=== PATIENT | male | born 1965 | race Hispanic/Latino ===

== ENCOUNTER 2022-01-22 17:16 | Emergency (ER) | payer OTHER ==
[~2022-01-22] VITALS: Ht 177.8 cm; Wt 117.9 kg
[2022-01-22] MEDS ORDERED: KETOROLAC 15MG/ML VIAL (15MG/ML) IV ONE (18:00)
[2022-01-22] MEDS ORDERED: ONDANSETRON 4MG INJ IVP ONE (18:00)
[2022-01-22] MEDS ORDERED: MORPHINE 4 MG SYG IVP ONE (18:00)
[2022-01-22] MEDS ORDERED: 0.9%NACL 1000ML 1,000 ML IV ONE (18:00)
[2022-01-22 18:08] LABS: BASOPHILS % (AUTO) 0.5 % (0.0-5.0); EOSINOPHILS % (AUTO) 0.1 % (0.0-8.0); HEMATOCRIT 49.2 % (42-54); LYMPHOCYTES % (AUTO) 17.6 % (21.0-51.0); MEAN CORPUSCULAR HEMOGLOBIN 32.7 pg (27.0-33.0); MEAN CORPUSCULAR HGB CONC 33.9 g/dL (32.0-36.0); MEAN CORPUSCULAR VOLUME 96.3 fL (79-99); MONOCYTES % (AUTO) 6.1 % (3.0-13.0); PLATELET COUNT (AUTO) 261 K/uL (130-400); RED BLOOD CELL COUNT(AUTO) 5.11 MIL/uL (4.50-6.20); RED CELL DISTRIBUTION WIDTH 12.5 % (11.0-15.5); WHITE BLOOD COUNT (AUTO) 10.2 K/uL (4.8-10.8)
[2022-01-22 18:31] LABS: APPEARANCE,URINE CLEAR (CLEAR); BILIRUBIN,URINE NEGATIVE (NEGATIVE); COLOR,URINE YELLOW (YELLOW); GLUCOSE, URINE (UA) NEGATIVE (NEGATIVE); KETONES,URINE 15 mg/dL (NEGATIVE); LEUKOCYTE ESTERASE ,URINE NEGATIVE (NEGATIVE); NITRATE,URINE NEGATIVE (NEGATIVE); OCCULT BLOOD,URINE LARGE (NEGATIVE); PROTEIN,URINE TRACE mg/dL (NEGATIVE); UROBILINOGEN,URINE 0.2 mg/dL (0.2-1.0)
[2022-01-22 18:39] LABS: BACTERIA,URINE Few /HPF (None Seen); MUCUS,URINE Rare LPF (None Seen); RBC,URINE 26-50 /HPF (0-1); SQUAMOUS EPITHELIAL CELL,UR Rare /HPF (0-2); WBC,URINE 0-1 /HPF (0-1)
[2022-01-22 18:44] LABS: ALBUMIN 3.9 g/dL (3.5-5.0); BILIRUBIN,TOTAL 0.9 mg/dL (0.2-1.0); CREATININE 1.6 mg/dL (0.5-1.5); POTASSIUM 3.8 mmol/L (3.5-5.1); TOTAL PROTEIN, SERUM 7.6 g/dL (6.0-8.3)
[2022-01-22] MEDS ORDERED: ACET-2079 PO (20:43)
[2022-01-22] MEDS ORDERED: ONDA4TAB10 PO (20:43)
[2022-01-22] MEDS ORDERED: NAPR500T6 PO (20:43)
[2022-01-22 20:46] VITALS: BP 135/90
== END 2022-01-22 20:59 | disposition home or self-care (01) ==
LOC: EDH 17:16
DX: N20.1 Calculus of ureter (principal); Z79.1 Long term (current) use of non-steroidal anti-inflammatories (NSAID); Z79.899 Other long term (current) drug therapy
CPT/HCPCS: 36415; 74176; 80053; 81001; 82150; 83690; 84484; 85025; 93005; 96361; 96374; 96375; 99285; J1885; J2270; J2405; J7030

== ENCOUNTER 2022-04-10 00:06 | Emergency (ER) | payer OTHER ==
[~2022-04-10] VITALS: Ht 177.8 cm; Wt 121.1 kg
[~2022-04-10 00:06] MED LIST: ACET-2079 PO; NAPR500T6 PO; ONDA4TAB10 PO
[2022-04-10 00:44] LABS: APPEARANCE,URINE CLEAR (CLEAR); BILIRUBIN,URINE NEGATIVE (NEGATIVE); COLOR,URINE YELLOW (YELLOW); GLUCOSE, URINE (UA) NEGATIVE (NEGATIVE); KETONES,URINE NEGATIVE (NEGATIVE); LEUKOCYTE ESTERASE ,URINE NEGATIVE (NEGATIVE); NITRATE,URINE NEGATIVE (NEGATIVE); OCCULT BLOOD,URINE SMALL (NEGATIVE); PH,URINE 5.5 (5.0-8.0); PROTEIN,URINE NEGATIVE (NEGATIVE); UROBILINOGEN,URINE 0.2 mg/dL (0.2-1.0)
[2022-04-10 00:50] LABS: CREATININE 2.4 mg/dL (0.5-1.5); POTASSIUM 4.1 mmol/L (3.5-5.1)
[2022-04-10 00:55] LABS: ALBUMIN 3.3 g/dL (3.5-5.0); BILIRUBIN,TOTAL 0.7 mg/dL (0.2-1.0); TOTAL PROTEIN, SERUM 6.8 g/dL (6.0-8.3)
[2022-04-10 00:57] LABS: BACTERIA,URINE Rare /HPF (None Seen); BASOPHILS % (AUTO) 0.6 % (0.0-5.0); EOSINOPHILS % (AUTO) 2.7 % (0.0-8.0); HEMATOCRIT 43.4 % (42-54); LYMPHOCYTES % (AUTO) 17.4 % (21.0-51.0); MEAN CORPUSCULAR HEMOGLOBIN 32.7 pg (27.0-33.0); MEAN CORPUSCULAR HGB CONC 33.4 g/dL (32.0-36.0); MEAN CORPUSCULAR VOLUME 97.7 fL (79-99); MONOCYTES % (AUTO) 10.5 % (3.0-13.0); MUCUS,URINE Rare LPF (None Seen); NEUTROPHILS % (AUTO) 67.9 % (40.0-77.0); PLATELET COUNT (AUTO) 227 K/uL (130-400); RBC,URINE 0-1 /HPF (0-1); RED BLOOD CELL COUNT(AUTO) 4.44 MIL/uL (4.50-6.20); RED CELL DISTRIBUTION WIDTH 12.6 % (11.0-15.5); SQUAMOUS EPITHELIAL CELL,UR 0-2 /HPF (0-2); WBC,URINE 0-1 /HPF (0-1)
[2022-04-10 00:58] LABS: URIC ACID CRYSTALS,URINE Many /LPF (None Seen)
[2022-04-10] MEDS ORDERED: 0.9%NACL 1000ML 1,000 ML IV ONE (02:00)
[2022-04-10] MEDS ORDERED: MORPHINE 4 MG SYG IVP ONE (03:00)
[2022-04-10] MEDS ORDERED: ONDANSETRON 4MG INJ IVP ONE (03:00)
[2022-04-10] MEDS ORDERED: IBUP-1493 PO (04:04)
[2022-04-10 04:16] VITALS: BP 134/77
== END 2022-04-10 04:17 | disposition home or self-care (01) ==
LOC: EDH 00:06
DX: N23 Unspecified renal colic (principal); Z79.1 Long term (current) use of non-steroidal anti-inflammatories (NSAID); Z79.899 Other long term (current) drug therapy
CPT/HCPCS: 36415; 74176; 80053; 81001; 85025; 96361; 96374; 96375; 99284; J2270; J2405; J7030

== ENCOUNTER 2022-12-21 18:50 | Emergency (ER) | payer OTHER ==
[~2022-12-21] VITALS: Ht 177.8 cm; Wt 117.9 kg
[~2022-12-21 18:50] MED LIST changes: +IBUP-1493 PO
[2022-12-21 19:17] LABS: APPEARANCE,URINE TURBID (CLEAR); BILIRUBIN,URINE MODERATE mg/dL (NEGATIVE); COLOR,URINE BROWN (YELLOW); GLUCOSE, URINE (UA) NEGATIVE (NEGATIVE); KETONES,URINE 5 mg/dL (NEGATIVE); LEUKOCYTE ESTERASE ,URINE TRACE Leu/uL (NEGATIVE); NITRATE,URINE POSITIVE (NEGATIVE); OCCULT BLOOD,URINE LARGE (NEGATIVE); PH,URINE 6.5 (5.0-8.0); PROTEIN,URINE >=300 mg/dL (NEGATIVE)
[2022-12-21 19:22] LABS: RBC,URINE TNTC /HPF (0-1)
[2022-12-21 19:23] LABS: BACTERIA,URINE Few /HPF (None Seen); SQUAMOUS EPITHELIAL CELL,UR None Seen /HPF (0-2); YEAST,URINE BUDDING Few /HPF (None Seen)
[2022-12-21] MEDS ORDERED: KETOROLAC 15MG/ML VIAL (15MG/ML) IV ONE (19:30)
[2022-12-21] MEDS ORDERED: MORPHINE 4 MG SYG IVP ONE (19:30)
[2022-12-21] MEDS ORDERED: ONDANSETRON 4MG INJ IV ONE (19:30)
[2022-12-21 20:01] LABS: BASOPHILS % (AUTO) 0.6 % (0.0-5.0); HEMATOCRIT 48.9 % (42-54); MEAN CORPUSCULAR HEMOGLOBIN 32.5 pg (27.0-33.0); MEAN CORPUSCULAR HGB CONC 33.9 g/dL (32.0-36.0); MEAN CORPUSCULAR VOLUME 95.9 fL (79-99); MONOCYTES % (AUTO) 10.8 % (3.0-13.0); NEUTROPHILS % (AUTO) 61.9 % (40.0-77.0); PLATELET COUNT (AUTO) 251 K/uL (130-400); RED CELL DISTRIBUTION WIDTH 12.4 % (11.0-15.5); WHITE BLOOD COUNT (AUTO) 10.9 K/uL (4.8-10.8)
[2022-12-21 20:20] LABS: CREATININE 1.3 mg/dL (0.5-1.5); POTASSIUM 3.7 mmol/L (3.5-5.1)
[2022-12-21 20:25] LABS: TOTAL PROTEIN, SERUM 7.4 g/dL (6.0-8.3)
[2022-12-21] MEDS ORDERED: CEFTRIAXONE 1G VIAL IVP SCH (21:00)
[2022-12-21] MEDS ORDERED: TAMS-1 PO (21:48)
[2022-12-21] MEDS ORDERED: CEPH500T PO (21:48)
[2022-12-21] MEDS ORDERED: OXYC-38 PO (21:48)
[2022-12-21] MEDS ORDERED: IBUP-2071 PO (21:48)
[2022-12-21 22:19] VITALS: BP 143/81
== END 2022-12-21 22:25 | disposition home or self-care (01) ==
LOC: EDH 18:50
DX: N23 Unspecified renal colic (principal); N39.0 Urinary tract infection, site not specified; Z87.442 Personal history of urinary calculi; Z79.899 Other long term (current) drug therapy
CPT/HCPCS: 99285; 74176; 96374; 96375; 51798; 80053; 85025; 87088; 81001; 36415; J0696; J2405; J2270; J1885

== ENCOUNTER 2023-04-03 16:25 | Inpatient (IN) | payer OTHER ==
[~2023-04-03] VITALS: Ht 177.8 cm; Wt 117.5 kg
[~2023-04-03 16:25] MED LIST changes: +CEPH500T PO; +IBUP-2071 PO; +OXYC-38 PO; +TAMS-1 PO
[2023-04-03 16:47] LABS: APPEARANCE,URINE CLOUDY (CLEAR); BILIRUBIN,URINE NEGATIVE (NEGATIVE); COLOR,URINE LIGHT-YELLOW (YELLOW); GLUCOSE, URINE (UA) NEGATIVE (NEGATIVE); KETONES,URINE NEGATIVE (NEGATIVE); LEUKOCYTE ESTERASE ,URINE 500 Leu/uL (NEGATIVE); NITRATE,URINE NEGATIVE (NEGATIVE); OCCULT BLOOD,URINE LARGE (NEGATIVE); PH,URINE 5.5 (5.0-8.0); PROTEIN,URINE 50 mg/dL (NEGATIVE); UROBILINOGEN,URINE 0.2 mg/dL (0.2-1.0)
[2023-04-03 16:56] LABS: BACTERIA,URINE FEW /HPF (None Seen); MUCUS,URINE RARE LPF (None Seen); OTHER CASTS, URINE 3 /LPF (None Seen); RBC,URINE 51-100 /HPF (0-1); SQUAMOUS EPITHELIAL CELL,UR RARE /HPF (0-2); WBC,URINE 51-100 /HPF (0-1); YEAST,URINE BUDDING FEW /HPF (None Seen)
[2023-04-03] MEDS ORDERED: ONDANSETRON 4MG INJ IVP ONE (17:30)
[2023-04-03] MEDS ORDERED: 0.9%NACL 1000ML 1,000 ML IV ONE (17:30)
[2023-04-03] MEDS ORDERED: MORPHINE 4 MG SYG IM ONE (17:30)
[2023-04-03 17:52] LABS: BASOPHILS % (AUTO) 0.3 % (0.0-5.0); EOSINOPHILS % (AUTO) 0.2 % (0.0-8.0); HEMATOCRIT 51.1 % (42-54); LYMPHOCYTES % (AUTO) 9.2 % (21.0-51.0); MEAN CORPUSCULAR HEMOGLOBIN 32.7 pg (27.0-33.0); MEAN CORPUSCULAR HGB CONC 33.3 g/dL (32.0-36.0); MEAN CORPUSCULAR VOLUME 98.3 fL (79-99); MONOCYTES % (AUTO) 7.7 % (3.0-13.0); NEUTROPHILS % (AUTO) 82.1 % (40.0-77.0); PLATELET COUNT (AUTO) 248 K/uL (130-400); RED CELL DISTRIBUTION WIDTH 12.6 % (11.0-15.5); WHITE BLOOD COUNT (AUTO) 15.3 K/uL (4.8-10.8)
[2023-04-03 18:05] LABS: CREATININE 1.2 mg/dL (0.5-1.5); POTASSIUM 3.6 mmol/L (3.5-5.1)
[2023-04-03 18:05] LABS: AMPHET/METH SCREEN,URINE NEGATIVE (NEGATIVE); BARBITURATE SCREEN, URINE NEGATIVE (NEGATIVE); BENZODIAZEPINES SCREEN,URINE NEGATIVE (NEGATIVE); CANNABINOID SCREEN,URINE POSITIVE (NEGATIVE); COCAINE SCREEN,URINE NEGATIVE (NEGATIVE); OPIATE SCREEN,URINE NEGATIVE (NEGATIVE); PHENCYCLIDINE SCREEN,URINE NEGATIVE (NEGATIVE)
[2023-04-03 18:10] LABS: ALBUMIN 3.8 g/dL (3.5-5.0); TOTAL PROTEIN, SERUM 7.9 g/dL (6.0-8.3)
[2023-04-03] MEDS ORDERED: CEFTRIAXONE 2GM VIAL IVPB ONE (19:30)
[2023-04-03] MEDS ORDERED: KETOROLAC 30MG VIAL (30MG/ML) IVP ONE (20:00)
[2023-04-03] MEDS ORDERED: FENTANYL CITRATE PF 50 MCG/1 ML 2ML VIAL IVP ONE (20:00)
[2023-04-03] MEDS ORDERED: METOCLOPRAMIDE 10 MG/2 ML VIAL IVP ONE (20:00)
[2023-04-03] MEDS ORDERED: FENTANYL 1000MCG+NS 100ML IV.SOLN IV SCH ×2 (20:00)
[2023-04-03] MEDS ORDERED: FAMOTIDINE 20MG VIAL IV ONE (20:00)
[2023-04-04] MEDS: MORPHINE 2 MG SYG IVP PRN ×5 (00:02→21:57)
[2023-04-04] MEDS: HEPARIN 5,000 UNIT VIAL SQ SCH ×2 (00:03→09:29)
[2023-04-04] MEDS: ZOSYN 3.375GM +NS 50ML IVPB SCH ×4 (00:03→21:57)
[2023-04-04 06:35] LABS: BASOPHILS % (AUTO) 0.3 % (0.0-5.0); EOSINOPHILS % (AUTO) 0.4 % (0.0-8.0); HEMATOCRIT 46.4 % (42-54); LYMPHOCYTES % (AUTO) 11.8 % (21.0-51.0); MEAN CORPUSCULAR HEMOGLOBIN 32.5 pg (27.0-33.0); MEAN CORPUSCULAR HGB CONC 33.4 g/dL (32.0-36.0); MEAN CORPUSCULAR VOLUME 97.3 fL (79-99); PLATELET COUNT (AUTO) 218 K/uL (130-400); RED BLOOD CELL COUNT(AUTO) 4.77 MIL/uL (4.50-6.20); RED CELL DISTRIBUTION WIDTH 12.7 % (11.0-15.5); WHITE BLOOD COUNT (AUTO) 12.7 K/uL (4.8-10.8)
[2023-04-04 06:45] LABS: ALBUMIN 3.1 g/dL (3.5-5.0); CREATININE 1.2 mg/dL (0.5-1.5); POTASSIUM 4.2 mmol/L (3.5-5.1); TOTAL PROTEIN, SERUM 6.8 g/dL (6.0-8.3)
[2023-04-04] MEDS: ACETAMINOPHEN 325 MG TAB PO PRN ×2 (08:23→16:26)
[2023-04-04] MEDS: ONDANSETRON 4MG INJ IVP PRN ×2 (08:23→12:46)
[2023-04-04 14:00] VITALS: BP 152/87
[2023-04-04 16:00] VITALS: BP 148/89
[2023-04-04 19:00] VITALS: BP 147/91
[2023-04-05] VITALS (7 sets, daily range): BP systolic 139–150; BP diastolic 69–94
[2023-04-05] MEDS: ZOSYN 3.375GM +NS 50ML IVPB SCH ×3 (04:34→20:00)
[2023-04-05] MEDS: ACETAMINOPHEN 325 MG TAB PO PRN ×3 (04:34→17:33)
[2023-04-05] MEDS: MORPHINE 2 MG SYG IVP PRN ×4 (04:35→20:01)
[2023-04-05 05:49] LABS: HEMATOCRIT 45.8 % (42-54); MEAN CORPUSCULAR HEMOGLOBIN 32.5 pg (27.0-33.0); MEAN CORPUSCULAR HGB CONC 33.2 g/dL (32.0-36.0); MEAN CORPUSCULAR VOLUME 97.9 fL (79-99); RED BLOOD CELL COUNT(AUTO) 4.68 MIL/uL (4.50-6.20); RED CELL DISTRIBUTION WIDTH 12.6 % (11.0-15.5); WHITE BLOOD COUNT (AUTO) 8.1 K/uL (4.8-10.8)
[2023-04-05 05:54] LABS: CREATININE 1.2 mg/dL (0.5-1.5)
[2023-04-05 06:00] LABS: INR 2.95 (0.85-1.15); PROTHROMBIN TIME 31.9 SEC (9.6-11.6)
[2023-04-06] MEDS: MORPHINE 2 MG SYG IVP PRN ×6 (00:34→23:49)
[2023-04-06 03:39] VITALS: BP 148/77
[2023-04-06] MEDS: ZOSYN 3.375GM +NS 50ML IVPB SCH ×3 (04:21→19:42)
[2023-04-06] MEDS: ACETAMINOPHEN 325 MG TAB PO PRN ×3 (04:28→19:51)
[2023-04-06 08:00] VITALS: BP 139/90
[2023-04-06 10:45] LABS: INR 0.94 (0.85-1.15); PROTHROMBIN TIME 10.9 SEC (9.6-11.6)
[2023-04-06 12:00] VITALS: BP 155/91
[2023-04-06 15:44] VITALS: BP 138/90
[2023-04-06] MEDS ORDERED: LACTULOSE 20 GM/30 ML UDCUP PO PRN (17:00)
[2023-04-06 19:42] VITALS: BP 144/88
[2023-04-06 23:11] VITALS: BP 147/95
[2023-04-07 04:10] VITALS: BP 150/86
[2023-04-07] MEDS: ACETAMINOPHEN 325 MG TAB PO PRN (04:43)
[2023-04-07] MEDS: MORPHINE 2 MG SYG IVP PRN ×4 (04:45→19:27)
[2023-04-07] MEDS: ZOSYN 3.375GM +NS 50ML IVPB SCH ×3 (04:47→21:01)
[2023-04-07 08:06] VITALS: BP 136/84
[2023-04-07 11:38] VITALS: BP 151/86
[2023-04-07 12:30] LABS: HEMATOCRIT 50.6 % (42-54); MEAN CORPUSCULAR HEMOGLOBIN 32.7 pg (27.0-33.0); MEAN CORPUSCULAR HGB CONC 33.2 g/dL (32.0-36.0); MEAN CORPUSCULAR VOLUME 98.4 fL (79-99); PLATELET COUNT (AUTO) 259 K/uL (130-400); RED BLOOD CELL COUNT(AUTO) 5.14 MIL/uL (4.50-6.20); RED CELL DISTRIBUTION WIDTH 12.4 % (11.0-15.5); WHITE BLOOD COUNT (AUTO) 6.3 K/uL (4.8-10.8)
[2023-04-07 12:46] LABS: CREATININE 1.2 mg/dL (0.5-1.5); POTASSIUM 3.8 mmol/L (3.5-5.1)
[2023-04-07] MEDS ORDERED: IOHEXOL-350 50ML VIAL IV ONE (13:28)
[2023-04-07 13:46] LABS: EOSINOPHILS % (MANUAL) 8 % (1-6); LYMPHOCYTES % (MANUAL) 25 % (22-44); MAN.DIFF COMMENT-IMPRESSION MANUAL DIFFERENTIAL; MONOCYTES % (MANUAL) 9 % (2-9); SEGMENTED NEUTROPHILS % 58 % (40-70)
[2023-04-07 13:47] LABS: PLATELET MORPHOLOGY COMMENT ADEQUATE
[2023-04-07 16:18] VITALS: BP 149/95
[2023-04-07 20:15] VITALS: BP 143/97
[2023-04-07 23:07] VITALS: BP 145/91
[2023-04-08] VITALS (13 sets, daily range): BP systolic 148–169; BP diastolic 75–90
[2023-04-08] MEDS: MORPHINE 2 MG SYG IVP PRN (01:24)
[2023-04-08] MEDS: HYDROMORPHONE 0.5 MG SYG (0.5MG/0.5ML) IVP PRN ×5 (03:16→21:07)
[2023-04-08] MEDS: ZOSYN 3.375GM +NS 50ML IVPB SCH ×3 (04:37→20:59)
[2023-04-08 05:34] LABS: HEMATOCRIT 48.2 % (42-54); MEAN CORPUSCULAR HEMOGLOBIN 32.3 pg (27.0-33.0); MEAN CORPUSCULAR HGB CONC 33.2 g/dL (32.0-36.0); MEAN CORPUSCULAR VOLUME 97.4 fL (79-99); RED BLOOD CELL COUNT(AUTO) 4.95 MIL/uL (4.50-6.20); RED CELL DISTRIBUTION WIDTH 12.2 % (11.0-15.5); WHITE BLOOD COUNT (AUTO) 14.2 K/uL (4.8-10.8)
[2023-04-08 05:48] LABS: CREATININE 1.7 mg/dL (0.5-1.5); MAGNESIUM 2.1 mg/dL (1.80-2.40)
[2023-04-08] MEDS: ONDANSETRON 4MG INJ IVP PRN (07:44)
[2023-04-08] MEDS ORDERED: LIDOCAINE HCL 400MG/20ML VIAL ONE (09:15)
[2023-04-08] MEDS ORDERED: FENTANYL CITRATE PF 50 MCG/1 ML 2ML VIAL ONE (09:16)
[2023-04-08] MEDS ORDERED: MIDAZOLAM HCL 1 MG/ML 2ML VIAL ONE (09:16)
[2023-04-08] MEDS ORDERED: IOHEXOL-350 50ML VIAL IV ONE (09:16)
[2023-04-08] MEDS ORDERED: KETOROLAC 30MG VIAL (30MG/ML) IM ONE (11:00)
[2023-04-09] VITALS (7 sets, daily range): BP systolic 137–152; BP diastolic 68–97
[2023-04-09] MEDS: HYDROMORPHONE 0.5 MG SYG (0.5MG/0.5ML) IVP PRN ×5 (02:05→22:27)
[2023-04-09] MEDS: ZOSYN 3.375GM +NS 50ML IVPB SCH ×3 (04:51→20:03)
[2023-04-09 06:03] LABS: HEMATOCRIT 47.2 % (42-54); MEAN CORPUSCULAR HEMOGLOBIN 32.7 pg (27.0-33.0); MEAN CORPUSCULAR HGB CONC 33.5 g/dL (32.0-36.0); MEAN CORPUSCULAR VOLUME 97.7 fL (79-99); RED BLOOD CELL COUNT(AUTO) 4.83 MIL/uL (4.50-6.20); RED CELL DISTRIBUTION WIDTH 12.4 % (11.0-15.5); WHITE BLOOD COUNT (AUTO) 10.7 K/uL (4.8-10.8)
[2023-04-09 06:21] LABS: CREATININE 1.4 mg/dL (0.5-1.5); POTASSIUM 3.9 mmol/L (3.5-5.1)
[2023-04-09] MEDS ORDERED: DIPHENHYDRAMINE HCL 25 MG CAPSULE PO PRN (14:00)
[2023-04-10 03:51] VITALS: BP 135/67
[2023-04-10] MEDS: HYDROMORPHONE 0.5 MG SYG (0.5MG/0.5ML) IVP PRN (03:54)
[2023-04-10] MEDS: ONDANSETRON 4MG INJ IVP PRN (03:59)
[2023-04-10] MEDS: ZOSYN 3.375GM +NS 50ML IVPB SCH ×3 (05:06→20:17)
[2023-04-10 06:13] LABS: HEMATOCRIT 47.5 % (42-54); MEAN CORPUSCULAR HEMOGLOBIN 32.9 pg (27.0-33.0); MEAN CORPUSCULAR HGB CONC 33.5 g/dL (32.0-36.0); MEAN CORPUSCULAR VOLUME 98.1 fL (79-99); RED BLOOD CELL COUNT(AUTO) 4.84 MIL/uL (4.50-6.20); RED CELL DISTRIBUTION WIDTH 12.2 % (11.0-15.5); WHITE BLOOD COUNT (AUTO) 9.1 K/uL (4.8-10.8)
[2023-04-10 06:34] LABS: CREATININE 1.2 mg/dL (0.5-1.5); MAGNESIUM 2.1 mg/dL (1.80-2.40); POTASSIUM 4.7 mmol/L (3.5-5.1)
[2023-04-10 08:00] VITALS: BP 141/88
[2023-04-10] MEDS ORDERED: TRAMADOL HCL 50 MG TABLET PO ONE (11:00)
[2023-04-10] MEDS ORDERED: TRAMADOL HCL 50 MG TABLET PO PRN (11:00)
[2023-04-10 12:00] VITALS: BP 137/87
[2023-04-10 17:00] VITALS: BP 153/92
[2023-04-10 20:00] VITALS: BP 143/90
[2023-04-10] MEDS: KETOROLAC 30MG VIAL (30MG/ML) IVP PRN (21:47)
[2023-04-11] VITALS: BP 132/83
[2023-04-11 04:00] VITALS: BP 122/79
[2023-04-11] MEDS: KETOROLAC 30MG VIAL (30MG/ML) IVP PRN (04:25)
[2023-04-11] MEDS: ZOSYN 3.375GM +NS 50ML IVPB SCH (04:25)
[2023-04-11 05:08] LABS: HEMATOCRIT 47.6 % (42-54); MEAN CORPUSCULAR HEMOGLOBIN 32.2 pg (27.0-33.0); MEAN CORPUSCULAR HGB CONC 33.2 g/dL (32.0-36.0); MEAN CORPUSCULAR VOLUME 96.9 fL (79-99); RED BLOOD CELL COUNT(AUTO) 4.91 MIL/uL (4.50-6.20); RED CELL DISTRIBUTION WIDTH 12.2 % (11.0-15.5); WHITE BLOOD COUNT (AUTO) 7.3 K/uL (4.8-10.8)
[2023-04-11 05:25] LABS: CREATININE 1.5 mg/dL (0.5-1.5); POTASSIUM 3.7 mmol/L (3.5-5.1)
[2023-04-11 07:53] VITALS: BP 135/74
[2023-04-11 11:29] VITALS: BP 140/86
== END 2023-04-11 13:00 | disposition home or self-care (01) | DRG 872 ==
LOC: EDH 16:25 → EDHIP 20:18 → OBSVTOIN 20:18 → 4CH 04-04 14:00
PROVIDERS: ADMIT Internal Medicine Infectious Disease; ATTEND Internal Medicine Infectious Disease
PROC: 0T9030Z Drainage of Right Kidney with Drainage Device, Percutaneous Approach (ICD-10-PCS; principal; 2023-04-08)
DX: A41.50 Gram-negative sepsis, unspecified (principal); N13.6 Pyonephrosis; Z20.822 Contact with and (suspected) exposure to COVID-19; E11.22 Type 2 diabetes mellitus with diabetic chronic kidney disease; N18.9 Chronic kidney disease, unspecified; N21.0 Calculus in bladder; E66.01 Morbid (severe) obesity due to excess calories; B96.20 Unspecified Escherichia coli [E. coli] as the cause of diseases classified elsewhere; I12.9 Hypertensive chronic kidney disease with stage 1 through stage 4 chronic kidney disease, or unspecified chronic kidney disease; Z82.49 Family history of ischemic heart disease and other diseases of the circulatory system; Z87.442 Personal history of urinary calculi; Z93.6 Other artificial openings of urinary tract status; Z87.440 Personal history of urinary (tract) infections; Z68.37 Body mass index [BMI] 37.0-37.9, adult
CPT/HCPCS: 10030; 36415; 50432; 74176; 74400; 76770; 80048; 80053; 80305; 81001; 83690; 83735; 85025; 85027; 85610; 87071; 87077; 87088; 87186; 87205; 87635; 99156; C1729; C1894; G0378; J0696; J1170; J1644; J1885; J2250; J2270; J2405; J2543; J2765; J3010; J3490; J7030; Q0163; Q9967

== ENCOUNTER → 2023-04-26 | Outpatient (CLI) | payer OTHER | END | disposition home or self-care (01) | LOC: RAH 04-18 13:15 | PROVIDERS: ATTEND Urology | DX: N20.0 Calculus of kidney (principal) | CPT/HCPCS: 74018; 76100 ==

== ENCOUNTER 2023-11-14 19:27 | Emergency (ER) | payer OTHER ==
[~2023-11-14] VITALS: Ht 177.8 cm; Wt 115.7 kg
[2023-11-14 20:30] LABS: APPEARANCE,URINE CLEAR (CLEAR); BILIRUBIN,URINE NEGATIVE (NEGATIVE); COLOR,URINE YELLOW (YELLOW); GLUCOSE, URINE (UA) 50 mg/dL (NEGATIVE); KETONES,URINE NEGATIVE (NEGATIVE); LEUKOCYTE ESTERASE ,URINE NEGATIVE Leu/uL (NEGATIVE); NITRATE,URINE NEGATIVE (NEGATIVE); OCCULT BLOOD,URINE SMALL (NEGATIVE); PROTEIN,URINE 70 mg/dL (NEGATIVE)
[2023-11-14 20:30] LABS: RAPID GROUP A STREP negative (NEGATIVE)
[2023-11-14 20:35] LABS: SARS-CoV-2, RNA, NAAT NEGATIVE SARS CoV-2 (NEGATIVE)
[2023-11-14 20:35] LABS: ADD UA MICROSCOPIC YES
[2023-11-14 20:38] LABS: MUCUS,URINE RARE LPF (None Seen); WBC,URINE 0-1 /HPF (0-1)
[2023-11-14 20:41] LABS: INFLUENZA TYPE A Negative For Type A (NEGATIVE); INFLUENZA TYPE B Negative For Type B (NEGATIVE)
[2023-11-14 21:31] LABS: BASOPHILS # (AUTO) 0.02 K/uL (0.00-0.20); BASOPHILS % (AUTO) 0.4 % (0.0-5.0); HEMATOCRIT 52.9 % (42-54); IMMATURE GRANULOCYTE ABSOLUTE 0.02 K/uL (0-1); LYMPHOCYTES # (AUTO) 0.5 K/uL (1.0-4.8); LYMPHOCYTES % (AUTO) 8.9 % (21.0-51.0); MEAN CORPUSCULAR HEMOGLOBIN 32.7 pg (27.0-33.0); MEAN CORPUSCULAR HGB CONC 34.8 g/dL (32.0-36.0); MEAN CORPUSCULAR VOLUME 94.1 fL (79-99); MONOCYTES # (AUTO) 0.4 K/uL (0.1-1.0); MONOCYTES % (AUTO) 6.8 % (3.0-13.0); NEUTROPHILS # (AUTO) 4.4 K/uL (1.8-7.7); NEUTROPHILS % (AUTO) 83.5 % (40.0-77.0); PLATELET COUNT (AUTO) 160 K/uL (130-400); RED BLOOD CELL COUNT(AUTO) 5.62 MIL/uL (4.50-6.20); RED CELL DISTRIBUTION WIDTH 11.9 % (11.0-15.5); WHITE BLOOD COUNT (AUTO) 5.3 K/uL (4.8-10.8)
[2023-11-14 21:47] LABS: ALBUMIN 3.6 g/dL (3.5-5.0); BILIRUBIN,TOTAL 1.8 mg/dL (0.2-1.0); CREATININE 1.2 mg/dL (0.5-1.5); POTASSIUM 4.2 mmol/L (3.5-5.1); TOTAL PROTEIN, SERUM 8.2 g/dL (6.0-8.3)
[2023-11-14 22:29] LABS: ABG BASE EXCESS 0.1 mmol/L (-2.0-3.0); ABG HCO3 21.8 mmol/L (21.0-28.0); ABG OXYGEN SATURATION 95.7 % (95.0-99.0); ABG PCO2 28 mmHg (35-48); PO2, ARTERIAL BG 69.8 mmHg (83.0-108.0); VENT MODE, BG ROOMAIR (ROOM AIR)
[2023-11-14 23:08] VITALS: PULSE 101; RESP 20
[2023-11-14] MEDS: ALBUTEROL 0.083% 2.5 MG/3 ML INH IH ONE (23:08)
[2023-11-14] MEDS: IBUPROFEN 600 MG TABLET PO ONE (23:12)
[2023-11-14] MEDS: 0.9%NACL 1000ML 1,000 ML IV ONE (23:20)
[2023-11-14] MEDS: PREDNISONE 20 MG TABLET PO ONE (23:21)
[2023-11-14] MEDS: FAMOTIDINE 20MG TAB PO ONE (23:21)
[2023-11-14] MEDS: ONDANSETRON ODT 4MG TAB SL ONE (23:21)
[2023-11-14] MEDS: KETOROLAC 30MG VIAL (30MG/ML) IVP ONE (23:21)
[2023-11-15] MEDS: DOXYCYCLINE HYCLATE 100 MG TABLET PO SCH (00:43)
[2023-11-15] MEDS: MORPHINE 2 MG SYG IM ONE (00:43)
[2023-11-15 00:49] VITALS: BP 135/72; PULSE 88; RESP 18; O2SAT 98
[2023-11-15] MEDS ORDERED: IBUP-2070 PO (00:50)
[2023-11-15] MEDS ORDERED: ONDA4TAB10 PO (00:50)
[2023-11-15] MEDS ORDERED: FIORIT PO (00:50)
[2023-11-15] MEDS ORDERED: PRED20TA3 PO (00:50)
[2023-11-15] MEDS ORDERED: DOXY-469 PO (00:50)
== END 2023-11-15 00:58 | disposition home or self-care (01) ==
LOC: EDH 19:27
DX: R50.9 Fever, unspecified (principal); R53.1 Weakness; R09.81 Nasal congestion; Z20.822 Contact with and (suspected) exposure to COVID-19; Z98.890 Other specified postprocedural states
CPT/HCPCS: 99285; 96374; 71045; 87635; 80053; 82803; 85025; 87040 ×2; 87880; 87804 ×2; 83605; 86000 ×6; 81001; 36415; 93005; 36600; 94640; 96372; J7030; J1885; J2270

== ENCOUNTER 2024-09-01 11:09 | Emergency (ER) | payer OTHER ==
[~2024-09-01] VITALS: Ht 172.7 cm; Wt 90.7 kg
[~2024-09-01 11:09] MED LIST changes: -ACET-2079 PO; -CEPH500T PO; +DOXY100C61 PO; +FIORIT PO; -IBUP-1493 PO; +IBUP-2070 PO; -IBUP-2071 PO; -NAPR500T6 PO; +ONDA-243 PO; -ONDA4TAB10 PO; -OXYC-38 PO; +PRED20TA3 PO; -TAMS-1 PO
[2024-09-01 11:53] LABS: SARS-CoV-2, RNA, NAAT NEGATIVE SARS CoV-2 (NEGATIVE)
[2024-09-01 11:56] LABS: INFLUENZA TYPE A Negative For Type A (NEGATIVE); INFLUENZA TYPE B Negative For Type B (NEGATIVE)
[2024-09-01 12:21] LABS: BASOPHILS # (AUTO) 0.04 K/uL (0.00-0.20); BASOPHILS % (AUTO) 0.4 % (0.0-5.0); HEMATOCRIT 48.6 % (42-54); LYMPHOCYTES # (AUTO) 1.1 K/uL (1.0-4.8); LYMPHOCYTES % (AUTO) 11.7 % (21.0-51.0); MEAN CORPUSCULAR HEMOGLOBIN 32.7 pg (27.0-33.0); MEAN CORPUSCULAR HGB CONC 33.5 g/dL (32.0-36.0); MEAN CORPUSCULAR VOLUME 97.6 fL (79-99); MONOCYTES # (AUTO) 0.3 K/uL (0.1-1.0); MONOCYTES % (AUTO) 2.9 % (3.0-13.0); NEUTROPHILS # (AUTO) 8.1 K/uL (1.8-7.7); PLATELET COUNT (AUTO) 306 K/uL (130-400); RED BLOOD CELL COUNT(AUTO) 4.98 MIL/uL (4.50-6.20); RED CELL DISTRIBUTION WIDTH 11.8 % (11.0-15.5); WHITE BLOOD COUNT (AUTO) 9.7 K/uL (4.8-10.8)
[2024-09-01] MEDS: 0.9%NACL 1000ML 1,000 ML IV STA (12:30)
[2024-09-01] MEDS: hydrOXYzine 25 MG TABLET PO STA (12:31)
[2024-09-01 12:37] LABS: CREATININE 1.4 mg/dL (0.5-1.3); POTASSIUM 4.1 mmol/L (3.5-5.1)
[2024-09-01] MEDS: ondanSETRON 4MG INJ IVP ONE (12:58)
[2024-09-01 13:07] LABS: APPEARANCE,URINE CLOUDY (CLEAR); BILIRUBIN,URINE NEGATIVE (NEGATIVE); COLOR,URINE LIGHT-YELLOW (YELLOW); GLUCOSE, URINE (UA) NEGATIVE (NEGATIVE); KETONES,URINE NEGATIVE (NEGATIVE); LEUKOCYTE ESTERASE ,URINE 500 Leu/uL (NEGATIVE); NITRATE,URINE NEGATIVE (NEGATIVE); OCCULT BLOOD,URINE NEGATIVE (NEGATIVE); PROTEIN,URINE 10 mg/dL (NEGATIVE); UROBILINOGEN,URINE 0.2 mg/dL (0.2-1.0)
--- NOTE | 2024-09-01 13:11 | ERN ---
ED Note History of Present Illness Stated Complaint: SICK Chief Complaint: Generalized Body Aches Time Seen by MD: 11:47 Time Seen by Midlevel: 11:50 Dictation: 59-year-old male with no past medical history complaining of feeling sick. Patient states he feels anxious and has intermittent body aches and chills that started this morning. Patient denies any recent travels, drug use, hormone use. Denies having any chest pain, vomiting, diarrhea. Allergies: Coded Allergies: No Known Drug Allergies (Unverified Allergy, Unknown, 01/22/22) Home Meds Active Scripts Ondansetron (Ondansetron Odt) 4 Mg Tab.rapdis, 4 MG PO Q6HPRN PRN for nausea, #16 TAB 0 Refills Prov:LUCIAN WILDE ART TEACHER 09/01/24 Azithromycin (Azithromycin) 250 Mg Tablet, 1 TAB PO AD for 5 Days, #6 TAB 0 Refills 2 the first day followed by 1 for days 2-5 Prov:LUCIAN WILDE ART TEACHER 09/01/24 Ondansetron (Ondansetron Odt) 4 Mg Tab.rapdis, 4 MG PO Q4H PRN for NAUSEA, #20 TAB Prov:PEREALIANMARIAMA [employer] PROGRAM DIRECTOR 11/15/23 Butalb/Acetaminophen/Caffeine (Fioricet) 50 Mg-325 Mg-40 Mg Tab, 1 TAB PO Q6HPRN PRN for HEADACHE, #30 TAB Prov:MARIAMA PEREA [employer] PROGRAM DIRECTOR 11/15/23 Prednisone (Prednisone) 20 Mg Tablet, 2 TAB PO DAILY for 5 Days, #10 TAB 0 Refills Prov:MARIAMA PEREA [employer] PROGRAM DIRECTOR 11/15/23 Ibuprofen (Ibuprofen) 600 Mg Tablet, 600 MG PO Q6H PRN for PAIN, #90 TAB Prov:MARRY PEREALUPE [employer] PROGRAM DIRECTOR 11/15/23 Doxycycline Monohydrate (Doxycycline Monohydrate) 100 Mg Capsule, 1 CAP PO BID for 14 Days, #28 CAP 0 Refills Prov:MARIAMA PEREA [employer] PROGRAM DIRECTOR 11/15/23 Past Medical History Past Medical History: No Pertinent History Surgical History: Other Surgical History Other: ELBOW, KNEE Family History: HTN Social History: Negative Review of System Dictation Constitutional: States has intermittent chills and feels sick Eyes: Negative for injury, pain,redness, and discharge ENT: Negative for injury,pain or swelling Cardiovascular: Negative for chest pain, palpitations, and edema Respiratory: Negative for shortness of breath, cough, and wheezing, Abdomen/GI: Negative for abdominal pain, nausea, vomiting, diarrhea, and constipation Back: Negative for injury and pain : Negative for injury, bleeding and discharge MS/Extremity: Negative for injury and deformity Skin: Negative for rash, and discoloration Neuro: Negative for headache, weakness, numbness, tingling, and seizure Psych: Negative for suicide ideation, homicidal ideation, and hallucinations Review of Systems: was completed Initial Vital Sign VS Vital Signs Date Time Temp Pulse Resp B/P (MAP) Pulse Ox O2 Delivery O2 Flow Rate FiO2 09/01/24 11:11 98.2 60 18 172/80 98 Room Air 0 Physical Exam Dictation General: awake, alert, NAD Head/Face: Normocephalic, atraumatic Eyes: PERRL, EOMI, vision at baseline ENT: oral cavity clear, TMs clear, no signs of infection Neck: Trachea midline, supple, no nuchal rigidity Cardiovascular: RRR, normal S1/S2, No MRGs, no JVD Respiratory: CTAB, no respiratory distress, No rales or wheezes Abdomen: Soft, non-tender, non-distended, normal bowel sounds, no guarding or rebound. Skin: Warm, dry, normal turgor, no rash MS/Extremity: Pulses equal, no cyanosis, neurovascular intact, FROM Neuro: COAx4, GCS 15, strength 5/5, CN 2-12 intact, normal cerebellar exam, normal gait, Psych: Normal behavior, mood, and affect normal Results (Laboratory/Radiology) Laboratory/Radiology Laboratory Tests Test 09/01/24 11:28 09/01/24 12:15 09/01/24 12:50 Influenza Type A Antigen Negative For Type A Influenza Type B Antigen Negative For Type B SARS-CoV-2, RNA, NAAT NEGATIVE SARS CoV-2 White Blood Count 9.7 K/uL (4.8-10.8) Red Blood Count 4.98 MIL/uL (4.50-6.20) Hemoglobin 16.3 g/dL (14.0-18.0) Hematocrit 48.6 % (42-54) Mean Corpuscular Volume 97.6 fL (79-99) Mean Corpuscular Hemoglobin 32.7 pg (27.0-33.0) Mean Corpuscular Hemoglobin Concent 33.5 g/dL (32.0-36.0) Red Cell Distribution Width 11.8 % (11.0-15.5) Platelet Count 306 K/uL (130-400) Mean Platelet Volume 9.5 fL (7.5-10.5) Immature Granulocyte % (Auto) 1.0 % (0-1) Neutrophils (%) (Auto) 84.0 % (40.0-77.0) H Lymphocytes (%) (Auto) 11.7 % (21.0-51.0) L Monocytes (%) (Auto) 2.9 % (3.0-13.0) L Eosinophils (%) (Auto) 0.0 % (0.0-8.0) Basophils (%) (Auto) 0.4 % (0.0-5.0) Neutrophils # (Auto) 8.1 K/uL (1.8-7.7) H Lymphocytes # (Auto) 1.1 K/uL (1.0-4.8) Monocytes # (Auto) 0.3 K/uL (0.1-1.0) Eosinophils # (Auto) 0.00 K/uL (0.00-0.70) Basophils # (Auto) 0.04 K/uL (0.00-0.20) Absolute Immature Granulocyte (auto 0.10 K/uL (0-1) Nucleated Red Blood Cells 0.0 % (0.0-0.19) D-Dimer Quantitative (PE/DVT) 349 ng/mL (0-500) Sodium Level 139 mmol/L (136-145) Potassium Level 4.1 mmol/L (3.5-5.1) Chloride Level 102 mmol/L (101-111) Carbon Dioxide Level 24 mmol/L (21-32) Blood Urea Nitrogen 15 mg/dL (7-18) Creatinine 1.4 mg/dL (0.5-1.3) H Glomerular Filtration Rate Calc 58 mL/min (>90) Random Glucose 119 mg/dL (70-105) H Total Calcium 9.3 mg/dL (8.5-10.1) Troponin I High Sensitivity < 4 ng/L (4-75) L Urine Color LIGHT-YELLOW (YELLOW) Urine Appearance CLOUDY (CLEAR) H Urine pH 6.0 (5.0-8.0) Urine Specific [place] 1.017 (1.001-1.031) Urine Protein 10 mg/dL (NEGATIVE) H Urine Glucose (UA) NEGATIVE mg/dL (NEGATIVE) Urine Ketones NEGATIVE mg/dL (NEGATIVE) Urine Occult Blood NEGATIVE (NEGATIVE) Urine Nitrate NEGATIVE (NEGATIVE) Urine Bilirubin NEGATIVE mg/dL (NEGATIVE) Urine Urobilinogen 0.2 mg/dL (0.2-1.0) Urine Leukocyte Esterase 500 Cinda/uL (NEGATIVE) H Urine RBC 0-1 /HPF (0-1) Urine WBC 26-50 /HPF (0-1) H Urine Squamous Epithelial Cells RARE /HPF (0-2) Urine Bacteria RARE /HPF (None Seen) Urine Opiates Screen NEGATIVE (NEGATIVE) Urine Barbiturates Screen NEGATIVE (NEGATIVE) Urine Phencyclidine Screen NEGATIVE (NEGATIVE) Urine Amphetamines Screen NEGATIVE (NEGATIVE) Urine Benzodiazepines Screen NEGATIVE (NEGATIVE) Urine Cocaine Screen NEGATIVE (NEGATIVE) Urine Marijuana (THC) Screen POSITIVE (NEGATIVE) H Labs Reviewed?: Yes EKG Comment: Date:09/01/24 Time:1228 Ventricular rate: 64 ID interval:204 QRS duration:13 QT/QTc:411/425 EKG interpretation: Sinus rhythm, borderline prolonged ID interval Reviewed by ED Attending no STEMI interpreted by ER MD X-RAY Comment: [place] [address] IMAGING REPORT Signed PATIENT: LILIBETH BRYANT MR#: [id number] : 1965 SEX: M AGE: 59 LOCATION: [facility] ORDER 1206 STATUS: REG ER REPORT#: [id number] SERVICE 1204 REASON: fatigue/sob ORDERING PHYSICIAN: LUCIAN WILDE NP PROCEDURE: CXR1VW - CHEST 1VW CHEST 1VW HISTORY: Shortness of breath COMPARISON: 11/14/2023 FINDINGS: A frontal projection of the chest was obtained. Mild bilateral pulmonary infiltrates are seen may be related to mild pulmonary vascular congestion with possible superimposed pneumonitis. The heart is borderline enlarged. Degenerative changes are seen. Aortic calcifications are seen. IMPRESSION: 1. Mild bilateral pulmonary infiltrates are seen may be related to mild pulmonary vascular congestion with possible superimposed pneumonitis. DICTATED BY: DONNA GOTTLIEB MD DATE: 09/01/24 1303 ELECTRONICALLY SIGNED BY: DONNA GOTTLIEB MD DATE: 09/01/24 1310 ED Course ED Course Orders Procedure Category Date Status Time Covid Rna Naat LAB 09/01/24 Complete 11:23 Influenza Type A & B, LAB 09/01/24 Complete Rapid 11:23 Cbc With Differential LAB 09/01/24 Complete 12:04 Basic Metabolic Panel LAB 09/01/24 Complete 12:04 Covid Rna Naat LAB 09/01/24 Logged 12:04 Influenza A And B Pcr LAB 09/01/24 Logged 12:04 Chest 1vw RAD 09/01/24 Resulted 12:04 12 Lead Ekg Tracing- EKG 09/01/24 Logged Technical 12:04 Urinalysis Profile LAB 09/01/24 Complete 12:04 Drug Screen Urine LAB 09/01/24 Complete 12:04 0.9%Nacl 1000ml (Ns PHA 09/01/24 Complete 1000ml) 12:04 Hydroxyzine 25mg Tab PHA 09/01/24 Complete (Atarax 25mg Tab) 12:04 Ondansetron 4mg Inj PHA 09/01/24 Complete (Zofran 4mg Inj) 13:00 Troponin I High LAB 09/01/24 Complete Sensitivity 13:01 D-Dimer LAB 09/01/24 Complete 13:12 Culture Urine MORRO 09/01/24 In Process 13:35 Ceftriaxone 1g Vial PHA 09/01/24 Transmitted (Rocephine 1g Inj) 14:19 Current Medications Medications (Trade) Dose Ordered Sig/Kath Route PRN Reason Start Time Stop Time Status Last Admin Dose Admin Hydroxyzine HCl (ATArax 25MG TAB) 25 mg ONCE STAT PO 09/01/24 12:04 09/01/24 12:07 DC 09/01/24 12:31 Ondansetron HCl (zoFRAN 4MG INJ) 4 mg ONCE ONCE IVP 09/01/24 13:00 09/01/24 13:01 DC 09/01/24 12:58 Sodium Chloride 1,000 ml @ 1,000 mls/hr Q1H STAT IV 09/01/24 12:04 09/01/24 13:03 DC 09/01/24 12:30 Vital Signs Date Time Temp Pulse Resp B/P (MAP) Pulse Ox O2 Delivery O2 Flow Rate FiO2 09/01/24 11:11 98.2 60 18 172/80 98 Room Air 0 Medical Decision Making MDM MDM: 59-year-old male with no past medical history complaining of feeling sick. Patient states he feels anxious and has intermittent body aches and chills that started this morning. Patient denies any recent travels, drug use, hormone use. Denies having any chest pain, vomiting, diarrhea.CBC shows no leukocytosis, no anemia, no thrombocytopenia. Chemistry shows mild elevation of the creatinine of 1.4, as could be due to dehydration. Troponin is negative, EKGs did not show any ST elevations or dysrhythmias. D-dimer negative. UA shows evidence of urinary tract infection, we will give antibiotics in the emergency room. Toxicology is positive for marijuana use. Serology negative for influenza, COVID. Chest x-ray shows mild bilateral pulmonary infiltrates could be related to vascular congestion or superimposed pneumonitis. Due to patient's presentation and clinical findings this is more likely is related to pneumonitis we will prescribe patient antibiotics. Educated patient on findings, educated on when to return back to the ER and follow up with PCP in 1- 2 days. Differential diagnosis: FL, anxiety, pneumonia, viral syndrome, PE, drug use Rationale: Tests considered and ordered secondary to shared decision making incl ude: Previous outside records reviewed: Old ER visits. Risk of complication and/or morbidity or mortality of patient management: None Medications-Per medication reconciliation Need for hospitalization: Patient does not meet criteria for hospitalization. Need for emergency major/minor surgery: No There are no social concerns with this patient. Prescription drug management Prescriptions will include symptomatic care Patient's prior external medical records from other ER visits were reviewed by me as indicated. Prior testing and results from previous visits were reviewed. Prior tests were taken into account with medical decision making and resource utilization, independent historian/historians were used to obtain complete medical history. I independently interpreted the test that were performed, results were reviewed by me and considered findings on radiology if ordered. Medical management and examination interpretation discussions were had by me with other qualified healthcare professionals as indicated for the patient's care. DX & DISP Disposition: Discharge Departure Impression: Primary Impression: Pneumonitis Additional Impressions: Marijuana use, Urinary tract infection Condition: Stable Scripts Ondansetron (Ondansetron Odt) 4 Mg Tab.rapdis 4 MG PO Q6HPRN PRN for nausea, #16 TAB 0 Refills Prov: LUCIAN WILDE NP 09/01/24 Azithromycin (Azithromycin) 250 Mg Tablet 1 TAB PO AD for 5 Days, #6 TAB 0 Refills 2 the first day followed by 1 for days 2-5 Prov: LUCIAN WILDE NP 09/01/24 Additional Instructions: You can take Tylenol or Motrin to control your fever body aches and chills. Visit your primary care doctor in 1-2 days. Stop using marijuana as this could worsen your nausea and vomiting. Return to the emergency room if symptoms worsen. Referrals: TERRENCE TIERNEY DO (PCP) Time of Disposition: 14:15 I have reviewed the case, and I agree with, Diagnosis and Plan LUCIAN WILDE NP Sep 01, 2024 13:11
[2024-09-01 13:14] LABS: AMPHET/METH SCREEN,URINE NEGATIVE (NEGATIVE); BARBITURATE SCREEN, URINE NEGATIVE (NEGATIVE); BENZODIAZEPINES SCREEN,URINE NEGATIVE (NEGATIVE); CANNABINOID SCREEN,URINE POSITIVE (NEGATIVE); COCAINE SCREEN,URINE NEGATIVE (NEGATIVE); OPIATE SCREEN,URINE NEGATIVE (NEGATIVE); PHENCYCLIDINE SCREEN,URINE NEGATIVE (NEGATIVE)
[2024-09-01 13:35] LABS: ADD UA MICROSCOPIC YES
[2024-09-01 13:36] LABS: BACTERIA,URINE RARE /HPF (None Seen); MUCUS,URINE RARE LPF (None Seen); RBC,URINE 0-1 /HPF (0-1); SQUAMOUS EPITHELIAL CELL,UR RARE /HPF (0-2); WBC,URINE 26-50 /HPF (0-1)
[2024-09-01] MEDS ORDERED: AZIT250T9 PO (14:15)
[2024-09-01] MEDS ORDERED: ONDA-243 PO (14:15)
[2024-09-01] MEDS: cefTRIAXone 1G VIAL IVPB STA (14:35)
[2024-09-01 14:52] VITALS: BP 132/78; PULSE 78; RESP 18; TEMP 97.2; O2SAT 98
--- NOTE | 2024-09-01 15:54 | EKG ---
[facility] Test Date: 2024-09-01 Test Time: 12:28:41 Pat Name: LILIBETH BRYANT Department: ED Room: Gender: M Refrigeration Manager: [id number] : 1965 Requested By: LUCIAN WILDE Order Number: [id number] Reading MD: Felisa Patricia Measurements Intervals [place] Rate: 64 P: 44 WY: 204 QRS: 13 QRSD: 99 T: 22 QT: 411 QTc: 425 Interpretive Statements Sinus rhythm Borderline prolonged [place] interval Compared to ECG 11/14/2023 22:48:08 No significant changes Electronically Signed On 09-02-2024 01:24:50 PIT OPERATOR by Felisa Patricia Please click the below link to view image of tracing.
== END 2024-09-01 14:45 | disposition home or self-care (01) ==
LOC: EDH 11:09
DX: J98.4 Other disorders of lung (principal); N39.0 Urinary tract infection, site not specified; F12.90 Cannabis use, unspecified, uncomplicated; Z20.822 Contact with and (suspected) exposure to COVID-19; Z79.52 Long term (current) use of systemic steroids; Z79.899 Other long term (current) drug therapy; Z98.890 Other specified postprocedural states
CPT/HCPCS: 99285; 96374; 71045; 87635; 96375; 84484; 80048; 80305; 85025; 85378; 87086 ×2; 87186; 87804 ×2; 36415; 93005; 81001; J7030; J0696; J2405